=== PATIENT | female | born 1965 | race Hispanic/Latino ===

== ENCOUNTER 2017-06-12 20:08 | Emergency (ER) | payer OTHER, SELFPAY ==
[2017-06-12] MEDS ORDERED: Adacel (T-DAP) 0.5 ML VIAL ONE (21:40)
[2017-06-12] MEDS ORDERED: Lidocaine 1% w/Epinephrine 1:100K 20 ML VIAL ONE (22:07)
[2017-06-12] MEDS ORDERED: Bacitracin Zinc 1 Packet ONE (22:29)
== END 2017-06-12 22:45 | disposition home or self-care (01) ==
LOC: ERS 20:08
DX: S61.211A Laceration without foreign body of left index finger without damage to nail, initial encounter (principal); J45.909 Unspecified asthma, uncomplicated; W26.0XXA Contact with knife, initial encounter; Y92.89 Other specified places as the place of occurrence of the external cause; Y99.0 Civilian activity done for income or pay
CPT/HCPCS: 12001; 90471; 90715; J2001

== ENCOUNTER 2019-06-21 08:37 | Emergency (ER) | payer SELFPAY ==
[2019-06-21] MEDS ORDERED: Ketorolac Tromethamine 30 MG/ML VIAL ONE (08:55)
== END 2019-06-21 09:25 | disposition home or self-care (01) ==
LOC: ERS 08:37
DX: K02.9 Dental caries, unspecified (principal); I10 Essential (primary) hypertension; J45.909 Unspecified asthma, uncomplicated
CPT/HCPCS: 96372; 99282; J1885

== ENCOUNTER 2020-10-17 16:52 | Emergency (ER) | payer OTHER, SELFPAY ==
[2020-10-17] MEDS ORDERED: Dexamethasone 4 mg/ml Vial ONE (17:17)
[2020-10-17] MEDS ORDERED: Ibuprofen 200 MG TAB ONE (17:17)
== END 2020-10-17 19:00 | disposition home or self-care (01) ==
LOC: ERS 16:52
DX: U07.1 COVID-19 (principal); J12.82 Pneumonia due to coronavirus disease 2019; J45.909 Unspecified asthma, uncomplicated
CPT/HCPCS: 71045; 96374; J1100

== ENCOUNTER 2020-10-22 16:11 | Emergency (ER) | payer SELFPAY ==
[2020-10-22 22:03] LABS: Red Blood Cell (RBC) Count 4.39 mill/uL (4.20-5.40); White Blood Cell (WBC) Count 7.9 thou/uL (4.8-10.8)
[2020-10-22 22:04] LABS: ALT (SGPT) 29 U/L (8-55); AST (SGOT) 18 U/L (5-34); Albumin 3.8 g/dL (3.5-5.0); Alkaline Phosphatase 60 U/L (40-110); Anion Gap 13 mmol/L (10-20); BUN (Urea Nitrogen) 17 mg/dL (9.8-20.1); Bilirubin, Total 0.3 mg/dL (0.2-1.2); Calc. Creatinine Clearance 0 mL/min (70-130); Calcium 9.1 mg/dL (7.8-10.44); Carbon Dioxide 22 mmol/L (22-29); Chloride 105 mmol/L (98-107); Glucose 126 mg/dL (70-105); Hemoglobin 13.8 g/dL (12.0-16.0); Mean Corpuscular HGB CONC 34.9 g/dL (32.0-36.0); Mean Corpuscular Hemoglobin 31.5 pg (27.0-31.0); Mean Corpuscular Volume 90.2 fL (78.0-98.0); Mean Platelet Volume 8.5 fL (7.4-10.4); Platelet Count 408 thou/uL (130-400); Potassium 3.9 mmol/L (3.5-5.1); Protein, Total 6.8 g/dL (6.0-8.3); RBC Distribution Width 11.7 % (11.5-14.5); Sodium 136 mmol/L (136-145)
[2020-10-22 22:05] LABS: #Eosinphils 0.2 thou/uL (0.0-0.7); #Lymphocytes 1.2 thou/uL (1.20-3.40); #Monocytes 0.5 thou/uL (0.11-0.59); %Basophils 0.3 % (0.0-1.0); %Eosinophils 2.1 % (0.0-10.0); %Lymphocytes 14.7 % (21.0-51.0); %Monocytes 6.9 % (0.0-10.0)
== END 2020-10-22 23:09 | disposition home or self-care (01) ==
LOC: ERS 16:11
DX: U07.1 COVID-19 (principal); J45.909 Unspecified asthma, uncomplicated
CPT/HCPCS: 71045; 80053; 85025

== ENCOUNTER 2020-11-04 12:14 | Outpatient (CLI) | payer OTHER | END 2020-11-04 12:15 | disposition home or self-care (01) | LOC: BICRAD 12:14 | PROVIDERS: ATTEND Nurse Practitioner Family | DX: U07.1 COVID-19 (principal); J84.10 Pulmonary fibrosis, unspecified | CPT/HCPCS: 71046 ==

== ENCOUNTER 2023-03-24 08:04 | Emergency (ER) | payer SELFPAY | END 2023-03-24 09:01 | disposition home or self-care (01) | LOC: ERS 08:04 | DX: J06.9 Acute upper respiratory infection, unspecified (principal); J45.901 Unspecified asthma with (acute) exacerbation; Z79.899 Other long term (current) drug therapy | CPT/HCPCS: 71045 ==